=== PATIENT | female | born 1995 | race Caucasian/White ===

== ENCOUNTER 2016-12-10 11:33 | Emergency (ER) | payer MEDICAID ==
[~2016-12-10] VITALS: Ht 160 cm; Wt 70.3 kg
[~2016-12-10 11:33] MED LIST: AMOXICILLIN500 MG PO; AMOXIL500 MG PO; ANAPROX DS550 MG PO; BENTYL10 MG PO; NAPROSYN500 MG PO; NKHM; ROBAXIN750 MG PO; ZITHROMAX Z PA250 MG PO
[2016-12-10] MEDS ORDERED: PRENATAL 19 CH1 EAC1 PO (11:39)
[2016-12-10 12:22] LABS: BASO % 0.3 % (0.0-1.0); EOS % 0.3 % (1.0-4.0); HEMATOCRIT 38.1 % (37.0-47.0); HEMOGLOBIN 13.2 g/dl (12.0-16.0); LYMPH # 1.6 10*3/uL (1.3-4.4); LYMPH % 10.6 % (27.0-41.0); MEAN CELL VOLUME 87.6 fl (81.0-99.0); MEAN CORPUSCULAR HGB 30.3 pg (27.0-31.0); MEAN CORPUSCULAR HGB CONC 34.6 g/dl (33.0-37.0); MEAN PLATELET VOLUME 9.4 fl (9.6-12.3); MONO # 0.7 10*3/uL (0.1-1.0); MONO % 4.5 % (3.0-9.0); NEUT # 12.4 10*3/uL (2.3-7.9); NEUT % 83.9 % (47.0-73.0); PLATELET COUNT AUTOMATED 221 10*3/uL (130-400); RED BLOOD COUNT 4.35 10*6/uL (4.10-5.10); RED CELL DISTRI WIDTH 12.1 % (0-14.5); WHITE BLOOD COUNT 14.8 10*3/uL (4.8-10.8)
[2016-12-10 12:40] LABS: ALBUMIN 3.8 gm/dl (3.1-4.5); ALKALINE PHOSPHATASE 58 U/L (45-117); BUN 8 mg/dl (7-24); CHLORIDE 104 mmol/L (98-107); LIPASE 67 U/L (73-393); POTASSIUM 3.4 mmol/L (3.5-5.1); SGOT/AST 15 IU/L (3-35); SGPT/ALT 15 U/L (12-78); SODIUM 135 mmol/L (136-145)
[2016-12-10 12:43] LABS: TROPONIN I < 0.015 ng/ml (<0.045)
[2016-12-10 14:00] LABS: BILIRUBIN NEGATIVE (NEGATIVE); BLOOD NEGATIVE (NEGATIVE); CLARITY CLOUDY (CLEAR); COLOR YELLOW (YELLOW); GLUCOSE NEGATIVE (NEGATIVE); KETONE TRACE (NEGATIVE); LEUKO ESTERASE TRACE (NEGATIVE); NITRITE NEGATIVE (NEGATIVE); SPECIFIC GRAVITY 1.015 (1.005-1.030); UROBILINOGEN 0.2 E.U./dl (0.2-1.0)
[2016-12-10 14:12] LABS: BACTERIA 2+
== END 2016-12-10 15:45 | disposition short-term general hospital (02) ==
LOC: ED 11:33
PROVIDERS: Nurse Practitioner Family
DX: O99.351 Diseases of the nervous system complicating pregnancy, first trimester (principal); Z79.899 Other long term (current) drug therapy; Z3A.09 9 weeks gestation of pregnancy

== ENCOUNTER 2018-11-04 18:32 | Emergency (ER) | payer OTHER ==
[~2018-11-04] VITALS: Ht 160 cm; Wt 90.7 kg
[~2018-11-04 18:32] MED LIST changes: +PRENATAL 19 CH1 EAC1 PO
[2018-11-04] MEDS ORDERED: FLONASE ALLERG9.9 ML NAS (18:51)
[2018-11-04] MEDS ORDERED: ZITHROMAX250 MG PO (18:51)
== END 2018-11-04 19:00 | disposition home or self-care (01) ==
LOC: ED 18:32
DX: J32.0 Chronic maxillary sinusitis (principal); Z79.899 Other long term (current) drug therapy

== ENCOUNTER 2020-03-13 18:24 | Emergency (ER) | payer OTHER ==
[~2020-03-13] VITALS: Wt 83.9 kg
[~2020-03-13 18:24] MED LIST changes: +FLONASE ALLERG9.9 ML NAS; +ZITHROMAX250 MG PO
[2020-03-13] MEDS ORDERED: AMOXICILLIN500 M2 PO (18:53)
== END 2020-03-13 19:03 ==
LOC: ED 18:24
DX: K04.7 Periapical abscess without sinus (principal); K02.9 Dental caries, unspecified; Z79.899 Other long term (current) drug therapy

== ENCOUNTER 2021-05-10 21:25 | Emergency (ER) | payer OTHER ==
[~2021-05-10] VITALS: Ht 160 cm; Wt 81.6 kg
[~2021-05-10 21:25] MED LIST changes: +AMOXICILLIN500 M2 PO
== END 2021-05-10 23:27 | disposition home or self-care (01) ==
LOC: ED 21:25
DX: S92.354A Nondisplaced fracture of fifth metatarsal bone, right foot, initial encounter for closed fracture (principal); Z98.890 Other specified postprocedural states; X50.1XXA Overexertion from prolonged static or awkward postures, initial encounter; Y93.89 Activity, other specified; Y92.89 Other specified places as the place of occurrence of the external cause; Y99.8 Other external cause status

== ENCOUNTER 2021-06-27 22:05 | Emergency (ER) | payer OTHER ==
[~2021-06-27] VITALS: Ht 167.6 cm; Wt 77.1 kg
[2021-06-27 22:37] LABS: BASO % 0.3 % (0.0-1.0); EOS # 0.1 10*3/uL (0.0-0.4); EOS % 0.5 % (1.0-4.0); HEMATOCRIT 40.1 % (37.0-47.0); LYMPH # 0.6 10*3/uL (1.3-4.4); LYMPH % 4.9 % (27.0-41.0); MEAN CELL VOLUME 85.1 fl (81.0-99.0); MEAN CORPUSCULAR HGB 28.9 pg (27.0-31.0); MEAN CORPUSCULAR HGB CONC 33.9 g/dl (33.0-37.0); MEAN PLATELET VOLUME 9.2 fl (9.6-12.3); MONO # 0.5 10*3/uL (0.1-1.0); MONO % 4.8 % (3.0-9.0); NEUT % 89.2 % (47.0-73.0); PLATELET COUNT AUTOMATED 241 10*3/uL (130-400); RED BLOOD COUNT 4.71 10*6/uL (4.10-5.10); RED CELL DISTRI WIDTH 12.8 % (0-14.5); WHITE BLOOD COUNT 11.2 10*3/uL (4.8-10.8)
[2021-06-27 22:55] LABS: ALKALINE PHOSPHATASE 81 U/L (45-117); BUN 7 mg/dl (7-24); CHLORIDE 108 mmol/L (98-107); CREATININE 0.57 mg/dL (0.55-1.02); LIPASE 41 U/L (73-393); POTASSIUM 3.6 mmol/L (3.5-5.1); SGOT/AST 13 IU/L (3-35); SGPT/ALT 17 U/L (12-78); SODIUM 135 mmol/L (136-145); TOTAL PROTEIN 6.9 gm/dL (6.4-8.2)
[2021-06-28 00:44] LABS: BILIRUBIN Negative (Negative); BLOOD Negative (Negative); CLARITY Clear (Clear); COLOR Yellow (Yellow); GLUCOSE Negative (Negative); KETONE Trace (Negative); LEUKO ESTERASE Negative (Negative); NITRITE Negative (Negative); PH 5.5 (4.5-8.0); SPECIFIC GRAVITY 1.025 (1.001-1.030)
[2021-06-28 01:04] LABS: WBC 0-2 wbc/hpf (0-5)
[2021-06-28] MEDS ORDERED: ZOFRAN4 MG PO (01:32)
== END 2021-06-28 02:12 | disposition home or self-care (01) ==
LOC: ED 22:05
PROVIDERS: Physician Assistant
DX: K52.9 Noninfective gastroenteritis and colitis, unspecified (principal)

== ENCOUNTER 2021-08-31 15:19 | Emergency (ER) | payer OTHER ==
[~2021-08-31] VITALS: Ht 160 cm; Wt 77.1 kg
[~2021-08-31 15:19] MED LIST changes: +ZOFRAN4 MG PO
[2021-08-31 15:48] LABS: BILIRUBIN Negative (Negative); BLOOD Negative (Negative); CLARITY Cloudy (Clear); COLOR Yellow (Yellow); GLUCOSE Negative (Negative); KETONE Trace (Negative); LEUKO ESTERASE Negative (Negative); NITRITE Negative (Negative); SPECIFIC GRAVITY 1.025 (1.001-1.030)
[2021-08-31 15:54] LABS: BACTERIA 1+; EPITHELIAL CELLS TNTC; HYALINE CAST 0-2; MUCOUS 2+
[2021-08-31 15:59] LABS: BASO % 0.5 % (0.0-1.0); EOS # 0.1 10*3/uL (0.0-0.4); EOS % 0.9 % (1.0-4.0); HEMATOCRIT 44.3 % (37.0-47.0); LYMPH # 0.9 10*3/uL (1.3-4.4); LYMPH % 14.4 % (27.0-41.0); MEAN CELL VOLUME 87.5 fl (81.0-99.0); MEAN CORPUSCULAR HGB 28.5 pg (27.0-31.0); MEAN CORPUSCULAR HGB CONC 32.5 g/dl (33.0-37.0); MONO # 0.5 10*3/uL (0.1-1.0); MONO % 7.3 % (3.0-9.0); NEUT # 4.9 10*3/uL (2.3-7.9); NEUT % 76.7 % (47.0-73.0); PLATELET COUNT AUTOMATED 222 10*3/uL (130-400); RED BLOOD COUNT 5.06 10*6/uL (4.10-5.10); RED CELL DISTRI WIDTH 13.1 % (0-14.5); WHITE BLOOD COUNT 6.4 10*3/uL (4.8-10.8)
[2021-08-31 16:14] LABS: ALKALINE PHOSPHATASE 79 U/L (45-117); BUN 9 mg/dl (7-24); CHLORIDE 108 mmol/L (98-107); CREATININE 0.77 mg/dL (0.55-1.02); POTASSIUM 4.1 mmol/L (3.5-5.1); SGOT/AST 19 IU/L (3-35); SGPT/ALT 26 U/L (12-78); SODIUM 138 mmol/L (136-145); TOTAL PROTEIN 7.1 gm/dL (6.4-8.2)
[2021-08-31] MEDS ORDERED: DEBROX15 ML OT (17:37)
[2021-08-31] MEDS ORDERED: AMOXICILLIN500 M3 PO (17:37)
== END 2021-08-31 17:43 | disposition home or self-care (01) ==
LOC: ED 15:19
PROVIDERS: Family Medicine
DX: N39.0 Urinary tract infection, site not specified (principal); H66.93 Otitis media, unspecified, bilateral

== ENCOUNTER 2022-07-10 23:17 | Emergency (ER) | payer OTHER ==
[~2022-07-10] VITALS: Ht 160 cm; Wt 83.9 kg
[~2022-07-10 23:17] MED LIST changes: +AMOXICILLIN500 M3 PO; +DEBROX15 ML OT
[2022-07-10 23:39] LABS: BASO % 0.3 % (0.0-1.0); EOS # 0.1 10*3/uL (0.0-0.4); HEMATOCRIT 38.8 % (37.0-47.0); LYMPH # 2.4 10*3/uL (1.3-4.4); LYMPH % 18.2 % (27.0-41.0); MEAN CELL VOLUME 86.8 fl (81.0-99.0); MEAN CORPUSCULAR HGB 29.5 pg (27.0-31.0); MEAN PLATELET VOLUME 8.6 fl (9.6-12.3); MONO # 0.9 10*3/uL (0.1-1.0); MONO % 6.7 % (3.0-9.0); NEUT # 9.8 10*3/uL (2.3-7.9); NEUT % 73.5 % (47.0-73.0); PLATELET COUNT AUTOMATED 292 10*3/uL (130-400); RED BLOOD COUNT 4.47 10*6/uL (4.10-5.10); RED CELL DISTRI WIDTH 12.8 % (0-14.5); WHITE BLOOD COUNT 13.4 10*3/uL (4.8-10.8)
[2022-07-10 23:55] LABS: BILIRUBIN Negative (Negative); BLOOD 3+ (Negative); CLARITY Cloudy (Clear); COLOR Dark Yellow (Yellow); GLUCOSE Negative (Negative); KETONE Trace (Negative); LEUKO ESTERASE 1+ (Negative); NITRITE Negative (Negative); SPECIFIC GRAVITY >= 1.030 (1.001-1.030)
[2022-07-11 00:06] LABS: BACTERIA 3+; EPITHELIAL CELLS TNTC
[2022-07-11 00:07] LABS: RBC 16-20 rbc/hpf (0-2)
[2022-07-11] MEDS ORDERED: AMOX-CLAV 875-1 EACH PO (00:33)
== END 2022-07-11 00:46 | disposition home or self-care (01) ==
LOC: ED 23:17
PROVIDERS: Internal Medicine
DX: O23.91 Unspecified genitourinary tract infection in pregnancy, first trimester (principal); O26.851 Spotting complicating pregnancy, first trimester; Z3A.01 Less than 8 weeks gestation of pregnancy

== ENCOUNTER 2022-07-13 09:15 | Emergency (ER) | payer OTHER ==
[~2022-07-13] VITALS: Ht 160 cm; Wt 83.9 kg
[~2022-07-13 09:15] MED LIST changes: +AMOX-CLAV 875-1 EACH PO
[2022-07-13 09:59] LABS: BASO % 0.3 % (0.0-1.0); EOS # 0.2 10*3/uL (0.0-0.4); EOS % 1.3 % (1.0-4.0); HEMATOCRIT 41.2 % (37.0-47.0); LYMPH # 2.2 10*3/uL (1.3-4.4); LYMPH % 19.1 % (27.0-41.0); MEAN CELL VOLUME 86.6 fl (81.0-99.0); MEAN CORPUSCULAR HGB 29.4 pg (27.0-31.0); MEAN PLATELET VOLUME 8.9 fl (9.6-12.3); MONO # 0.8 10*3/uL (0.1-1.0); MONO % 7.1 % (3.0-9.0); NEUT # 8.1 10*3/uL (2.3-7.9); NEUT % 71.8 % (47.0-73.0); PLATELET COUNT AUTOMATED 299 10*3/uL (130-400); RED BLOOD COUNT 4.76 10*6/uL (4.10-5.10); RED CELL DISTRI WIDTH 12.8 % (0-14.5); WHITE BLOOD COUNT 11.3 10*3/uL (4.8-10.8)
[2022-07-13 10:44] LABS: ALKALINE PHOSPHATASE 66 U/L (46-116); BUN 6 mg/dl (9-23); CHLORIDE 104 mmol/L (98-107); POTASSIUM 4.4 mmol/L (3.4-5.1); SGPT/ALT < 7 U/L (10-49); TOTAL PROTEIN 6.8 gm/dL (6.0-8.0)
== END 2022-07-13 14:53 | disposition home or self-care (01) ==
LOC: ED 09:15
PROVIDERS: Emergency Medicine
DX: O23.91 Unspecified genitourinary tract infection in pregnancy, first trimester (principal); Z3A.01 Less than 8 weeks gestation of pregnancy; F17.200 Nicotine dependence, unspecified, uncomplicated; Z98.890 Other specified postprocedural states

== ENCOUNTER 2023-05-04 18:55 | Emergency (ER) | payer OTHER ==
[~2023-05-04] VITALS: Ht 160 cm; Wt 79.4 kg
[2023-05-04] MEDS ORDERED: Ketorolac Tromethamine 30 MG/ML VIAL IM ONE (19:15)
[2023-05-04] MEDS ORDERED: methylPREDNISolone sod succ 125 MG VIAL IM ONE (19:15)
[2023-05-04] MEDS ORDERED: CYCLOBENZAPRINE5 M3 PO (19:17)
== END 2023-05-04 19:35 | disposition home or self-care (01) ==
LOC: ED 18:55
DX: M54.16 Radiculopathy, lumbar region (principal); Z79.899 Other long term (current) drug therapy; Z79.2 Long term (current) use of antibiotics